=== PATIENT | male | born 1985 | race Caucasian/White ===

== ENCOUNTER 2019-11-19 14:59 | Emergency (ER) | payer OTHER ==
[~2019-11-19] VITALS: Ht 144.8 cm; Wt 44.0 kg
--- NOTE | 2019-11-19 15:15 | NUR ---
PT NOT IN LOBBY AT THIS TIME
--- NOTE | 2019-11-19 15:25 | NUR ---
PT CALLED--NOT IN LOBBY AT THIS TIME
--- NOTE | 2019-11-19 15:46 | NUR ---
PATIENT WHEELCHAIR ASSISTED TO BED 3 AT THIS TIME
[2019-11-19 15:49] VITALS: BP 94/49
--- NOTE | 2019-11-19 15:51 | NUR ---
34 Y/O M C/C FEVER X2 DAYS. PER FAMILY GIVEN TYLENOL 1400 HOURS, FEVER ON AND OFF. ALLERGIES PNC. HX DOWN SYNDROME,INVOICE CHECKER SHUNT PLACEMENT 2015. RX ERVIN FERNANDEZ FOR MAINTANANCE TO PREVENT SZ ACTIVITY. NO N/V/D. TAKEN FLU SHOT/NO FAMILY SICK AT HOME. SIDE RAIL X1. FAMILY AT BEDSIDE.
--- NOTE | 2019-11-19 16:19 | NUR ---
FLU SWAP COLLECTED
[2019-11-19 17:25] LABS: APPEARANCE,URINE CLEAR (CLEAR); BILIRUBIN,URINE 1+ (NEGATIVE); BLOOD, URINE 3+ (NEGATIVE); COLOR,URINE YELLOW (YELLOW); LEUKOCYTE ESTERASE ,URINE 1+ (NEGATIVE); NITRITE, URINE NEGATIVE (NEGATIVE); UGLUCOSE NEGATIVE (NEGATIVE)
[2019-11-19 18:07] LABS: HYALINE CASTS, URINE 0-10 /LPF (None Seen); RBC,URINE 20-50 /HPF (0-5); URINE AMORPHOUS URATE 1+ /HPF (None Seen); WBC,URINE 20-60 /HPF (0-5)
[2019-11-19 18:28] VITALS: BP 100/51
--- NOTE | 2019-11-19 18:29 | NUR ---
Patient discharged with v/s stable. Written and verbal after care instructions given and explained. Patient alert, oriented and verbalized understanding of instructions. Wheel Chair Assisted with by parent. All questions addressed prior to discharge. ID band removed. Patient advised to follow up with PMD. Rx of KEFLEX given. Patient educated on indication of medication including possible reaction and side effects. Opportunity to ask questions provided and answered.
== END 2019-11-19 18:29 | disposition home or self-care (01) ==
LOC: MED 14:59
DX: N39.0 Urinary tract infection, site not specified (principal); Z88.0 Allergy status to penicillin; Z98.890 Other specified postprocedural states; Z98.2 Presence of cerebrospinal fluid drainage device
CPT/HCPCS: 71045; 81001; 87086; 87186; 87804; 99284; Q0092

== ENCOUNTER 2023-01-09 13:17 | Emergency (ER) | payer OTHER ==
[~2023-01-09] VITALS: Ht 144.8 cm; Wt 45.4 kg
[2023-01-09 13:33] VITALS: BP 112/66
--- NOTE | 2023-01-09 13:42 | NUR ---
pt to bed 12 accompanied by parents.
[2023-01-09 14:46] LABS: BASOPHILS % (AUTO) 0.3 % (0.0-2.0); EOSINOPHILS % (AUTO) 0.1 % (0.0-4.0); HEMATOCRIT 41.1 % (36-52); HEMOGLOBIN 14.2 g/dL (12.0-18.0); LYMPHOCYTES % (AUTO) 15.2 % (20.5-51.1); MEAN CORPUSCULAR HEMOGLOBIN 35 pg (27-31); MEAN CORPUSCULAR HGB CONC 34 g/dL (33-37); MEAN CORPUSCULAR VOLUME 100.1 fL (80-94); MONOCYTES # (AUTO) 0.5 K/uL (0.8-1.0); MONOCYTES % (AUTO) 8.3 % (1.7-9.3); NEUTROPHILS # (AUTO) 4.9 K/uL (1.8-7.7); NEUTROPHILS % (AUTO) 76.1 % (42.2-75.2); PLATELET COUNT (AUTO) 201 K/uL (140-450); RED BLOOD CELL COUNT(AUTO) 4.11 MIL/uL (4.20-6.10); RED CELL DISTRIBUTION WIDTH 13.4 % (11.6-13.7); WHITE BLOOD COUNT (AUTO) 6.4 K/uL (4.8-10.8)
--- NOTE | 2023-01-09 15:00 | NUR ---
patient taken to radiology
[2023-01-09 15:02] LABS: ACETAMINOPHEN 2.3 ug/ml (10-30); ALBUMIN 3.1 g/dL (3.4-5.0); ANION GAP 9.7 (8-16); ASPARTATE AMINOTRANSFERASE 88 U/L (15-37); CARBON DIOXIDE 32.2 mmol/L (21-32); CHLORIDE 96 mmol/L (98-107); GFR ARICAN-AMERICAN 109 mL/min (>90); GLUCOSE 106 mg/dL (74-106); POTASSIUM 3.9 mmol/L (3.5-5.1); SODIUM SERUM 134 mmol/L (136-145); TOTAL BILIRUBIN 0.4 mg/dL (0.0-1.0); UREA NITROGEN, BLOOD 15 mg/dL (7-18)
[2023-01-09 15:07] LABS: SALICYLATE < 2.8 mg/dL (2.8-20.0)
[2023-01-09] MEDS ORDERED: LORazepam 2 MG/ML VIAL IM ONE (15:45)
--- NOTE | 2023-01-09 16:38 | NUR ---
patient to CT scan
[2023-01-09 16:44] LABS: APPEARANCE,URINE CLEAR (CLEAR); BILIRUBIN,URINE NEGATIVE (NEGATIVE); BLOOD, URINE NEGATIVE (NEGATIVE); COLOR,URINE YELLOW (YELLOW); LEUKOCYTE ESTERASE ,URINE NEGATIVE (NEGATIVE); NITRITE, URINE NEGATIVE (NEGATIVE); UGLUCOSE NEGATIVE (NEGATIVE)
--- NOTE | 2023-01-09 19:18 | NUR ---
COVID-19 (PCR) swab collected and sent to lab.
--- NOTE | 2023-01-09 20:28 | NUR ---
WALKED COVID SWAB TO LAB.
--- NOTE | 2023-01-09 20:46 | NUR ---
Meal provided to pt according to diet.
--- NOTE | 2023-01-09 22:10 | NUR ---
Father signed consent to transfer, and spoke with patient's parent and notified transfer to [facility], ICU 3.
--- NOTE | 2023-01-09 22:24 | NUR ---
Patient to be transferred to [facility]. Is being transferred due to Higher level of care. Receiving facility has accepting physician and available space. ER physician has signed transfer form. Patient or responsible libertarian has agreed to transfer and signed form. Patient belongings inventoried and will be sent with patient. Copy of nursing notes, lab reports, EKG, Physicians Orders and X-rays to be sent with patient. Report called to OLIVA Jones at receiving facility. [facility] ambulance service has been called for ALS transfer. ETA is 30 min.
--- NOTE | 2023-01-09 22:38 | NUR ---
KEON sandovalane arrived for transportation. Report/Care endorsed to Paramedics for transfer of care. Mother/Father at bedside. Pt in stable condition upon transfer.
[2023-01-09 22:39] VITALS: BP 117/66
== END 2023-01-09 22:39 | disposition short-term general hospital (02) ==
LOC: MED 13:17
DX: R41.82 Altered mental status, unspecified (principal); Z20.822 Contact with and (suspected) exposure to COVID-19; T85.01XA Breakdown (mechanical) of ventricular intracranial (communicating) shunt, initial encounter; G91.9 Hydrocephalus, unspecified; Q90.9 Down syndrome, unspecified; Z79.899 Other long term (current) drug therapy
CPT/HCPCS: 36415; 70250; 70450; 71046; 72040; 74021; 80053; 81003; 85025; 87426; 87635; 93005; 96372; 99285; C9803; G0480; G0482; J2060; Q0092; U0005

== ENCOUNTER 2023-03-17 05:25 | Emergency (ER) | payer OTHER ==
[~2023-03-17] VITALS: Ht 144.8 cm; Wt 43.5 kg
[2023-03-17 05:43] VITALS: BP 113/47
[2023-03-17 05:50] VITALS: BP 113/47
--- NOTE | 2023-03-17 05:55 | NUR ---
PT TAKEN TO BED 4
--- NOTE | 2023-03-17 06:04 | NUR ---
Dr. Thorne examining patient.
[2023-03-17] MEDS ORDERED: LORazepam 0.5 MG TAB PO ONE (06:15)
[2023-03-17] MEDS ORDERED: ATI.5 PO (06:15)
--- NOTE | 2023-03-17 06:30 | NUR ---
Patient discharged with v/s stable. Written and verbal after care instructions given and explained. Patient alert, oriented and verbalized understanding of instructions. Wheel Chair Assisted with by parent. All questions addressed prior to discharge. ID band removed. Patient advised to follow up with PMD. Rx of ativan given. Opportunity to ask questions provided and answered.
== END 2023-03-17 06:30 | disposition home or self-care (01) ==
LOC: MED 05:25
DX: G47.00 Insomnia, unspecified (principal); Z88.0 Allergy status to penicillin; Z79.899 Other long term (current) drug therapy; Z98.890 Other specified postprocedural states
CPT/HCPCS: 99283